=== PATIENT | female | born 1980 | race Caucasian/White ===

== ENCOUNTER 2024-04-14 15:24 | Emergency (ER) | payer OTHER, SELFPAY ==
--- NOTE | ~2024-04-14 | CT_ITS ---
EXAMINATION: CT abdomen pelvis wo con DATE: 04/14/2024 16:20 INDICATION: Right flank pain. TECHNIQUE: Computed tomography (CT) of the abdomen and pelvis was performed without intravenous contr ast. Automated exposure control and iterative reconstruction technique were employed. The dose-length product was 495.06 mGy-cm. COMPARISON: None. FINDINGS: The visualized portions of the lung bases demonstrate mild atelectasis. No pleural effusion . The heart size is normal. No pericardial effusion. The liver, and spleen are normal. There are [place] ges of cholecystectomy. The pancreas, adrenal glands, and left kidney are normal. There are 2 mm and 1 mm stones in right kidney. There are no dilated loops of bowel. The appendix is normal. There are n o pathologically enlarged lymph nodes. There is no free intraperitoneal fluid. There is a supraumbili shane ventral hernia containing fat. There is mild thoracic and lumbar spondylosis. IMPRESSION: 1. Nonobstructing right kidney stones. 2. Supraumbilical ventral hernia containing fat. Reviewed, dictated and finalized at location A.
[2024-04-14 15:35] VITALS: BP 164/116; PULSE 88; RESP 16; TEMP 36.3; O2SAT 100
--- NOTE | 2024-04-14 15:47 | ED.BACK ---
HPI - Back Pain/Injury General Chief Complaint: Back Pain/Injury Stated Complaint: kidney stone Time Seen by Provider: 04/14/24 16:30 43-year-old female presents with right flank pain started about a week ago. Patient states she has been on a chiropractor with no relief. Patient has a history kidney stones and is concerned she has another kidney stone. Associated urinary frequency GENERAL: Well-appearing, well-nourished, and in no acute distress. HEAD: Normocephalic, atraumatic. EYES: PERRLA and EOMI. ENT: Nares clear, no rhinorrhea or epistaxis. Mucous membranes moist. NECK: Supple. CHEST: Clear to auscultation. No respiratory distress. HEART: Regular rate and rhythm. No murmur heard. Normal peripheral pulses. ABDOMEN: Soft, nontender, nondistended, normal active bowel sounds. right cva tenderness EXTREMITIES: Normal range of motion. No edema. SKIN: Warm, dry, no rash. NEURO: No focal deficits. Alert and oriented x3. PSYCH: Normal mood and affect. History of Present Illness HPI Narrative: 43-year-old female presents with right flank pain started about a week ago. Patient states she has been on a chiropractor with no relief. Patient has a history kidney stones and is concerned she has another kidney stone. Associated urinary frequency Pertinent past history: kidney stones Onset (ago): week(s) (1) Related Data Allergies Allergy/AdvReac Type Severity Reaction Status Date / Time Penicillins Allergy Gastrointestinal Verified 04/14/24 17:17 Upset Review of Systems Review of Systems: A 10 system review of systems was completed on the patient and is negative except for what is stated in the HPI. Nursing and ancillary documentation was reviewed. Exam Narrative: GENERAL: Well-appearing, well-nourished, and in no acute distress. HEAD: Normocephalic, atraumatic. EYES: PERRLA and EOMI. ENT: Nares clear, no rhinorrhea or epistaxis. Mucous membranes moist. NECK: Supple. CHEST: Clear to auscultation. No respiratory distress. HEART: Regular rate and rhythm. No murmur heard. Normal peripheral pulses. ABDOMEN: Soft, nontender, nondistended, normal active bowel sounds. right cva tenderness EXTREMITIES: Normal range of motion. No edema. SKIN: Warm, dry, no rash. NEURO: No focal deficits. Alert and oriented x3. PSYCH: Normal mood and affect. Course Course Emergency Course: CT scan and lab work ordered Vital Signs Vital signs: Vital Signs Temperature 36.3 C L 04/14/24 15:35 Pulse Rate 88 04/14/24 15:35 Respiratory Rate 16 04/14/24 15:35 Blood Pressure 164/116 H 04/14/24 15:35 Pulse Oximetry 100 04/14/24 15:35 Temperature 36.3 C L 04/14/24 15:35 Pulse Rate 88 04/14/24 15:35 Respiratory Rate 16 04/14/24 15:35 Blood Pressure 164/116 H 04/14/24 15:35 Pulse Oximetry 100 04/14/24 15:35 MDM - Back Pain/Injury MDM Narrative Medical decision making narrative: Patient has right nonobstructing kidney stone. Will treat with Toradol and Flomax and referred to Urology Lab Data 04/14/24 15:46 04/14/24 15:46 Labs: Lab Results 04/14/24 04/14/24 Range/Units 15:46 15:51 WBC 7.3 (4.5-10.0) K/mm3 RBC 4.73 (4.2-5.4) M/mm3 Hgb 13.1 (12.0-15.0) g/dL Hct 40.7 (37.0-47.0) % MCV 86.0 (80-100) fl MCH 27.7 (26-34) pg MCHC 32.2 (32-36) g/dl RDW 14.8 H (11.5-14.5) % Plt Count 247 (150-375) k/mm3 MPV 9.3 (7.4-10.4) fl Immature Gran % (Auto) 0.3 (0-0.5) % Neut % (Auto) 59.6 (45.5-73.1) % Lymph % (Auto) 32.1 (18.3-44.2) % [place] % (Auto) 7.1 (2.6-8.5) % Eos % (Auto) 0.5 (0-4.4) % Baso % (Auto) 0.4 (0.2-1.2) % Lymph # (Auto) 2.35 (0.9-3.2) K/mm3 [place] # (Auto) 0.5 (0.1-0.6) K/mm3 Eos # (Auto) 0.0 (0-0.3) K/mm3 Baso # (Auto) 0.0 (0.0-0.1) K/mm3 Abs Immat Gran (auto) 0.02 (0.00-0.031) K/mm3 Absolute Neuts (auto) 4.4 (1.3-6.7) K/mm3 Absolute Nucleated RBC 0.000
[2024-04-14 15:54] LABS: BEDSIDEPREGUCG Negative (Negative)
[2024-04-14 15:57] LABS: Basophils Percent Auto 0.4 % (0.2-1.2); Eosinophils Percent Auto 0.5 % (0-4.4); Hematocrit 40.7 % (37.0-47.0); Hemoglobin 13.1 g/dL (12.0-15.0); Immature Granulocyte Absolute 0.02 K/mm3 (0.00-0.031); Immature Granulocyte Percent A 0.3 % (0-0.5); Lymphocytes Absolute Auto 2.35 K/mm3 (0.9-3.2); Lymphocytes Percent Auto 32.1 % (18.3-44.2); Mean Corpuscular HGB Conc 32.2 g/dl (32-36); Mean Corpuscular Hemoglobin 27.7 pg (26-34); Mean Platelet Volume 9.3 fl (7.4-10.4); Monocytes Absolute Auto 0.5 K/mm3 (0.1-0.6); Monocytes Percent Auto 7.1 % (2.6-8.5); Neutrophils Absolute Auto 4.4 K/mm3 (1.3-6.7); Neutrophils Percent Auto 59.6 % (45.5-73.1); Platelet Count Result 247 k/mm3 (150-375); Red Blood Count 4.73 M/mm3 (4.2-5.4); Red Cell Distribution Width 14.8 % (11.5-14.5); White Blood Count 7.3 K/mm3 (4.5-10.0)
[2024-04-14 16:00] LABS: Add Urine Microscopic? NO; Appearance Urine Clear (Clear); Bilirubin Urine Negative (Negative); Blood Urine Negative (Negative); Color Urine Yellow (Yellow); Glucose Urine UA Negative (Negative); Ketones Urine Negative (Negative); Leukocyte Esterase Ur Negative LEU/UL (Negative); Nitrate Urine Negative (Negative); Protein Urine Negative (Negative); Specific Grav Ur 1.011 (1.001-1.035); Urobilinogen Urine 0.2 mg/dL (<2.0); pH Urine 7.5 (5.0-9.0)
[2024-04-14 17:07] LABS: Alanine Aminotransferase 15 U/L (6-35); Albumin Level 4.3 g/dL (3.5-5.1); Alkaline Phosphatase 49 U/L (38-126); Anion Gap 7 mmol/L (4-12); Aspartate Amino Transferase 25 U/L (14-36); Bilirubin,Total 0.3 mg/dL (0.2-1.3); Blood Urea Nitrogen 13 mg/dL (7-17); Calcium 9.1 mg/dL (8.4-10.2); Carbon Dioxide 28 mmol/L (22-30); Chloride 102 mmol/L (98-107); Estimated CRCL calculation 68 ml/min; Estimated Glomerular Filt Rate > 60; Glucose 84 mg/dL (65-110); Potassium 4.1 mmol/L (3.4-5.0); Sodium 137 mmol/L (137-145)
[2024-04-14 17:32] VITALS: BP 146/88; PULSE 84; RESP 20; O2SAT 99
== END 2024-04-14 17:34 | disposition home or self-care (01) ==
PROVIDERS: Emergency Medicine; Emergency Provider Nurse Practitioner Family
DX: N20.0 Calculus of kidney (principal); Z87.442 Personal history of urinary calculi; K43.9 Ventral hernia without obstruction or gangrene
CPT/HCPCS: 36415; 74176; 80053; 81003; 81025; 85025; 99284

== ENCOUNTER 2024-06-17 16:03 | Emergency (ER) | payer OTHER, SELFPAY ==
--- NOTE | ~2024-06-17 | CT_ITS ---
EXAMINATION: CT abdomen pelvis wo con DATE: 06/17/2024 18:20 INDICATION: Right flank pain. TECHNIQUE: Computed tomography (CT) of the abdomen and pelvis was performed without intravenous contr ast. Automated exposure control and iterative reconstruction technique were employed. The dose-length product was 250.81 mGy-cm. COMPARISON: None. FINDINGS: The visualized portions of the lung bases demonstrate mild atelectasis on the left. No pleu ral effusion. The heart size is normal. There are coronary artery calcifications. No pericardial effu adriane. The liver and spleen are normal. There are changes of cholecystectomy. The pancreas, adrenal gl ands, and left kidney are normal. There are two 1 mm stones in right kidney. There is a supraumbilica l ventral hernia containing fat. There are no dilated loops of bowel. The appendix is normal. There a re no pathologically enlarged lymph nodes. There is no free intraperitoneal fluid. There is mild thor acic and lumbar spondylosis. IMPRESSION: 1. Nonobstructing right kidney stones. 2. Supraumbilical ventral hernia containing fat. Reviewed, dictated and finalized at location A. N [facility]
[2024-06-17 16:09] VITALS: BP 156/98; PULSE 92; RESP 16; TEMP 36.6; O2SAT 100
--- NOTE | 2024-06-17 16:57 | ED.FEMALEGU ---
HPI - Female Genitourinary General Chief complaint: Urogenital-Female <JACEY Ga Last Filed: 06/17/24 17:09> Stated complaint: kidney stone <JACEY Ga Last Filed: 06/17/24 17:09> Time Seen by Provider: 06/17/24 16:57 <JACEY Ga Last Filed: 06/17/24 17:09> Focused HPI: Patient is a 43 y/o female who presents to the ED with c/o R flank pain. Patient reports hx of frequent kidney stones. States she was seen in the ED here in March and diagnosed with multiple right-sided kidney stones. No ureteral stones. She states she does not feel diffuse have passed since then. She is having persistent right-sided flank pain. Has not taken anything for pain today or yesterday as she states nothing helps. Reports some radiation of pain to her R buttock, denies radiation to her abdomen. Reports chronic issues with N/V r/t IBS/gastroparesis, denies changes in this. Denies fevers, dysuria, hematuria. GENERAL: Well-appearing, well-nourished, and in no acute distress. HEAD: Normocephalic, atraumatic. CHEST: Clear to auscultation. ?No respiratory distress. HEART: Regular rate and rhythm.? MSK: No significant tenderness to R lumbosacral region. No midline spinal tenderness. ABD: No tenderness. NEURO: ?Alert and oriented x3. Patient screened in triage and initial orders placed.? ?Additional care and disposition to be based upon?diagnostic testing and treatment. <JACEY Ga Last Filed: 06/17/24 17:09> Source: patient <JACEY Ga Last Filed: 06/17/24 17:09> Mode of arrival: ambulatory <JACEY Ga Last Filed: 06/17/24 17:09> Limitations: no limitations <JACEY Ga Last Filed: 06/17/24 17:09> Related Data Allergies/Adverse reactions: Allergies Allergy/AdvReac Type Severity Reaction Status Date / Time Penicillins Allergy Gastrointestinal Verified 04/14/24 17:17 Upset <Anjelica Trejo PA-C - Last Filed: 06/17/24 17:09> Review of Systems Review of Systems: CONSTITUTIONAL: Denies fever GASTROINTESTINAL: Denies abdominal pain, nausea, vomiting, or diarrhea. GENITOURINARY: Denies dysuria or hematuria. MUSCULOSKELETAL: Reports back pain NEUROLOGIC: Denies numbness, or weakness. <Jasmin Worthy PA-C - Last Filed: 06/17/24 20:21> All systems reviewed & are unremarkable except as noted in HPI and below <Jasmin Worthy PA-C - Last Filed: 06/17/24 20:21> PMFSH Past Medical History Medical History: Medical History (Updated 06/17/24 @ 20:17 by Jasmin Worthy PA-C) History of gastroesophageal reflux (GERD) History of hypertension <Anjelica Trejo PA-C - Last Filed: 06/17/24 17:09> Social History Social History: Social History (Updated 06/17/24 @ 20:17 by Jasmin Worthy PA-C) Substance use: never <Anjelica Trejo PA-C - Last Filed: 06/17/24 17:09> Exam Narrative: GENERAL: Well-appearing, well-nourished, and in no acute distress. HEAD: Normocephalic, atraumatic. EYES: EOMI. CHEST: Clear to auscultation. No respiratory distress. No wheezes rales or rhonchi HEART: Regular rate and rhythm. No murmur heard. Normal peripheral pulses. EXTREMITIES: Normal range of motion. No edema. SKIN: Warm, dry, no rash. NEURO: No focal deficits. Alert and oriented x3. Normal gait PSYCH: Normal mood and affect <Jasmin Worthy PA-C - Last Filed: 06/17/24 20:21> Course Course Emergency Course: patient updated on her workup and agrees with plan of care <Jasmin Worthy PA-C - Last Filed: 06/17/24 20:21> Vital Signs Vital signs: Vital Signs Temperature 97.9 F 06/17/24 16:09 Pulse Rate 92 06/17/24 16:09 Respiratory Rate 16 06/17/24 16:09 Blood Pressure 156/98 H 06/17/24 16:09 Pulse Oximetry 100 06/17/24 16:09 Temperature 97.9 F 06/17/24 16:09 Pulse Rate 92 06/17/24 16:09 Respiratory Rate 16 06/17/24 16:09 Blood Pressure 156/98 H 06/17/24 16:09 Pulse Oximetry 100 06/17/24 16:09 <Anjelica Trejo PA-C - Last Filed: 06/17/24 17:09> Vital Signs Temperature 97.9 F 06/17/24 16:09 Pulse Rate 92 06/17/24 16:09 Respiratory Rate 16 06/17/24 16:09 Blood Pressure 156/98 H 06/17/24 16:09 Pulse Oximetry 100 06/17/24 16:09 Temperature 97.9 F 06/17/24 16:09 Pulse Rate 92 06/17/24 16:09 Respiratory Rate 16 06/17/24 16:09 Blood Pressure 156/98 H 06/17/24 16:09 Pulse Oximetry 100 06/17/24 16:09 <Jasmin Worthy PA-C - Last Filed: 06/17/24 20:21> MDM - Female Genitourinary MDM Narrative Medical decision making narrative: MSE by VIVI in triage. <JACEY Ga Last Filed: 06/17/24 17:09> MSE by VIVI in triage. Patient presents to the emergency department for right flank pain. Ongoing intermittently over the last several months. She is afebrile and nontoxic appearing. Cbc without leukocytosis. Metabolic panel with normal kidney function. Urine without evidence of infection. CT abdomen pelvis shows nonobstructing right kidney stones. Patient updated on her workup and agrees with plan of care. She is to follow up with primary provider. She was given warnings to return to the ER <Jasmin Worthy PA-C - Last Filed: 06/17/24 20:21> Differential Diagnosis Differential diagnosis: Likely other (Muscle strain, osteoarthritis, degenerative disc disease, kidney stone, UTI) <Jasmin Worthy PA-C - Last Filed: 06/17/24 20:21> Lab Data Attestation: I reviewed the patient's lab results. <Jasmin Worthy PA-C - Last Filed: 06/17/24 20:21> Result diagrams: 06/17/24 17:11 06/17/24 17:11 <Anjelica Trejo PA-C - Last Filed: 06/17/24 17:09> Labs: Lab Results 06/17/24 06/17/24 Range/Units 17:03 17:11 WBC 8.5 (4.5-10.0) K/mm3 RBC 4.55 (4.2-5.4) M/mm3 Hgb 12.8 (12.0-15.0) g/dL Hct 38.8 (37.0-47.0) % MCV 85.3 (80-100) fl MCH 28.1 (26-34) pg MCHC 33.0 (32-36) g/dl RDW 12.7 (11.5-14.5) % Plt Count 276 (150-375) k/mm3 MPV 9.1 (7.4-10.4) fl Immature Gran % (Auto) 0.4 (0-0.5) % Neut % (Auto) 63.8 (45.5-73.1) % Lymph % (Auto) 27.0 (18.3-44.2) % [place] % (Auto) 7.8 (2.6-8.5) % Eos % (Auto) 0.4 (0-4.4) % Baso % (Auto) 0.6 (0.2-1.2) % Lymph # (Auto) 2.31 (0.9-3.2) K/mm3 [place] # (Auto) 0.7 H (0.1-0.6) K/mm3 Eos # (Auto) 0.0 (0-0.3) K/mm3 Baso # (Auto) 0.1 (0.0-0.1) K/mm3 Abs Immat Gran (auto) 0.03 (0.00-0.031) K/mm3 Absolute Neuts (auto) 5.5 (1.3-6.7) K/mm3 Absolute Nucleated RBC 0.000 (0.0-0.012) K/mm3 Nucleated RBC % 0.0 (0.0-0.2) % Sodium 136 L (137-145) mmol/L Potassium 4.0 (3.4-5.0) mmol/L Chloride 102 (98-107) mmol/L Carbon Dioxide 30 (22-30) mmol/L Anion Gap 4 (4-12) mmol/L BUN 15 (7-17) mg/dL Creatinine 0.90 (0.7-1.0) mg/dL Estim Creat Clear Calc 68 ml/min Estimated GFR > 60 (59 - ) Glucose 84 (65-110) mg/dL Calcium 9.3 (8.4-10.2) mg/dL Total Bilirubin 0.8 (0.2-1.3) mg/dL AST 27 (14-36) U/L ALT 15 (6-35) U/L Alkaline Phosphatase 64 (38-126) U/L Total Protein 7.0 (6.3-8.2) g/dL Albumin 4.5 (3.5-5.1) g/dL Urine Color Yellow (Yellow) Urine Appearance Clear (Clear) Urine pH 6.0 (5.0-9.0) Ur Specific [place] 1.003 (1.001-1.035) Urine Protein Negative (Negative) mg/dL Urine Glucose (UA) Negative (Negative) mg/dL Urine Ketones Negative (Negative) mg/dL Ur Blood (Man) Negative (Negative) Urine Nitrate Negative (Negative) Urine Bilirubin Negative (Negative) Urine Urobilinogen 0.2 (<2.0) mg/dL Leukocyte Esterase Rfl Negative (Negative) YOSVANY/UL Urine Test Negative <Anjelica Trejo PA-C - Last Filed: 06/17/24 17:09> Lab Results 06/17/24 06/17/24 Range/Units 17:03 17:11 WBC 8.5 (4.5-10.0) K/mm3 RBC 4.55 (4.2-5.4) M/mm3 Hgb 12.8 (12.0-15.0) g/dL Hct 38.8 (37.0-47.0) % MCV 85.3 (80-100) fl MCH 28.1 (26-34) pg MCHC 33.0 (32-36) g/dl RDW 12.7 (11.5-14.5) % Plt Count 276 (150-375) k/mm3 MPV 9.1 (7.4-10.4) fl Immature Gran % (Auto) 0.4 (0-0.5) % Neut % (Auto) 63.8 (45.5-73.1) % Lymph % (Auto) 27.0 (18.3-44.2) % [place] % (Auto) 7.8 (2.6-8.5) % Eos % (Auto) 0.4 (0-4.4) % Baso % (Auto) 0.6 (0.2-1.2) % Lymph # (Auto) 2.31 (0.9-3.2) K/mm3 [place] # (Auto) 0.7 H (0.1-0.6) K/mm3 Eos # (Auto) 0.0 (0-0.3) K/mm3 Baso # (Auto) 0.1 (0.0-0.1) K/mm3 Abs Immat Gran (auto) 0.03 (0.00-0.031) K/mm3 Absolute Neuts (auto) 5.5 (1.3-6.7) K/mm3 Absolute Nucleated RBC 0.000 (0.0-0.012) K/mm3 Nucleated RBC % 0.0 (0.0-0.2) % Sodium 136 L (137-145) mmol/L Potassium 4.0 (3.4-5.0) mmol/L Chloride 102 (98-107) mmol/L Carbon Dioxide 30 (22-30) mmol/L Anion Gap 4 (4-12) mmol/L BUN 15 (7-17) mg/dL Creatinine 0.90 (0.7-1.0) mg/dL Estim Creat Clear Calc 68 ml/min Estimated GFR > 60 (59 - ) Glucose 84 (65-110) mg/dL Calcium 9.3 (8.4-10.2) mg/dL Total Bilirubin 0.8 (0.2-1.3) mg/dL AST 27 (14-36) U/L ALT 15 (6-35) U/L Alkaline Phosphatase 64 (38-126) U/L Total Protein 7.0 (6.3-8.2) g/dL Albumin 4.5 (3.5-5.1) g/dL Urine Color Yellow (Yellow) Urine Appearance Clear (Clear) Urine pH 6.0 (5.0-9.0) Ur Specific [place] 1.003 (1.001-1.035) Urine Protein Negative (Negative) mg/dL Urine Glucose (UA) Negative (Negative) mg/dL Urine Ketones Negative (Negative) mg/dL Ur Blood (Man) Negative (Negative) Urine Nitrate Negative (Negative) Urine Bilirubin Negative (Negative) Urine Urobilinogen 0.2 (<2.0) mg/dL Leukocyte Esterase Rfl Negative (Negative) YOSVANY/UL Urine Test Negative <JACEY Crouch Last Filed: 06/17/24 20:21> Imaging Data Radiologist's impression: ITS Impressions Abdomen/Pelvis CT 06/17/24 18:22 IMPRESSION: 1. Nonobstructing right kidney stones. 2. Supraumbilical ventral hernia containing fat. <JACEY Crouch Last Filed: 06/17/24 20:21> Critical Care Time Critical Care Time Critical Care Time: No <JACEY Crouch Last Filed: 06/17/24 20:21> Discharge Plan Discharge Clinical Impression: Acute right-sided back pain Qualifiers: Back pain location: low back pain Sciatica presence: without sciatica Qualified Code(s): M54.50 - Low back pain, unspecified <JACEY Ga Last Filed: 06/17/24 17:09> Patient Disposition: Home, Self-Care <JACEY Ga Last Filed: 06/17/24 17:09> Condition: Stable <JACEY Ga Last Filed: 06/17/24 17:09> Instructions: Back Pain (ED) <JACEY Ga Last Filed: 06/17/24 17:09> Additional Instructions: Return to the ER if you experience fever, abdominal pain with nausea and vomiting, pain or burning with urination, blood in the urine, weakness, numbness, bowel/bladder incontinence, or any other symptoms that are concerning to you Rest, use ice/heat, take anti-inflammatories (Aleve, Ibuprofen, Naproxen, etc) or Tylenol as needed for pain as well as muscle relaxer (Flexeril) as needed for pain. Muscle relaxers can make you drowsy, do not drive if you take this Follow up with your primary care doctor <Anjelica Trejo PA-C - Last Filed: 06/17/24 17:09> Patient Language: Romanian <Anjelica Trejo PA-C - Last Filed: 06/17/24 17:09> Prescriptions: New cyclobenzaprine 10 mg tablet 10 mg PO TID PRN (Reason: muscle spasm) Qty: 14 0RF No Action ketorolac 10 mg tablet 10 mg PO Q6H PRN (Reason: pain) Qty: 12 0RF Rx Instructions: maximum total duration of 5 days from all oral, intranasal, or parenteral formulations tamsulosin [Flomax] 0.4 mg capsule 0.4 mg PO DAILY Qty: 5 0RF <Anjelica Trejo PA-C - Last Filed: 06/17/24 17:09> Follow-up/Referrals: UNKNOWN,DOCTOR [Non-Staff] - <Anjelica Trejo PA-C - Last Filed: 06/17/24 17:09>
[2024-06-17 17:10] LABS: Add Urine Microscopic? NO; Appearance Urine Clear (Clear); Bilirubin Urine Negative (Negative); Blood Urine Negative (Negative); Color Urine Yellow (Yellow); Glucose Urine UA Negative (Negative); Ketones Urine Negative (Negative); Leukocyte Esterase Ur Negative LEU/UL (Negative); Nitrate Urine Negative (Negative); Protein Urine Negative (Negative); Specific Grav Ur 1.003 (1.001-1.035); Urobilinogen Urine 0.2 mg/dL (<2.0)
[2024-06-17 17:21] LABS: Basophils Absolute Auto 0.1 K/mm3 (0.0-0.1); Basophils Percent Auto 0.6 % (0.2-1.2); Eosinophils Percent Auto 0.4 % (0-4.4); Hematocrit 38.8 % (37.0-47.0); Hemoglobin 12.8 g/dL (12.0-15.0); Immature Granulocyte Absolute 0.03 K/mm3 (0.00-0.031); Immature Granulocyte Percent A 0.4 % (0-0.5); Lymphocytes Absolute Auto 2.31 K/mm3 (0.9-3.2); Mean Corpuscular Hemoglobin 28.1 pg (26-34); Mean Corpuscular Volume 85.3 fl (80-100); Mean Platelet Volume 9.1 fl (7.4-10.4); Monocytes Absolute Auto 0.7 K/mm3 (0.1-0.6); Monocytes Percent Auto 7.8 % (2.6-8.5); Neutrophils Absolute Auto 5.5 K/mm3 (1.3-6.7); Neutrophils Percent Auto 63.8 % (45.5-73.1); Platelet Count Result 276 k/mm3 (150-375); Red Blood Count 4.55 M/mm3 (4.2-5.4); Red Cell Distribution Width 12.7 % (11.5-14.5); White Blood Count 8.5 K/mm3 (4.5-10.0)
[2024-06-17 17:30] LABS: Alanine Aminotransferase 15 U/L (6-35); Albumin Level 4.5 g/dL (3.5-5.1); Alkaline Phosphatase 64 U/L (38-126); Anion Gap 4 mmol/L (4-12); Aspartate Amino Transferase 27 U/L (14-36); Bilirubin,Total 0.8 mg/dL (0.2-1.3); Blood Urea Nitrogen 15 mg/dL (7-17); Calcium 9.3 mg/dL (8.4-10.2); Carbon Dioxide 30 mmol/L (22-30); Chloride 102 mmol/L (98-107); Estimated CRCL calculation 68 ml/min; Estimated Glomerular Filt Rate > 60; Glucose 84 mg/dL (65-110); Sodium 136 mmol/L (137-145)
[2024-06-17 18:08] LABS: Pregnancy On Board Control Positive; Urine Pregnancy Test Negative
== END 2024-06-17 20:19 | disposition home or self-care (01) ==
PROVIDERS: Physician Assistant; Emergency Provider Physician Assistant
DX: M54.50 Low back pain, unspecified (principal); N20.0 Calculus of kidney; K43.9 Ventral hernia without obstruction or gangrene; K21.9 Gastro-esophageal reflux disease without esophagitis; I10 Essential (primary) hypertension
CPT/HCPCS: 36415; 74176; 80053; 81003; 81025; 85025; 99284